=== PATIENT | male | born 1995 | race Two or more races ===

== ENCOUNTER 2025-04-20 14:33 | Inpatient (IN) | payer MEDICAID, OTHER ==
[~2025-04-20] VITALS: Ht 160 cm; Wt 90.9 kg
[2025-04-20] MEDS ORDERED: FLUP2.5T24 PO (14:47)
[2025-04-20] MEDS ORDERED: FLUPH2.5I IM (14:47)
[2025-04-20 15:00] LABS: COVID AG,FIA SOURCE NASAL SWAB
[2025-04-20 15:27] LABS: SARS-COV2 (COVID) ANTIGEN,FIA Negative (Negative)
[2025-04-20] MEDS ORDERED: FAMO20 PO (15:36)
[2025-04-20] MEDS ORDERED: FLUP25VI5 IM (15:36)
[2025-04-20 19:39] LABS: APPEARANCE,URINE CLEAR (CLEAR); GLUCOSE, URINE (UA) NEGATIVE (NEGATIVE); LEUKOCYTE ESTERASE ,URINE NEGATIVE (NEGATIVE); NITRATE,URINE NEGATIVE (NEGATIVE); OCCULT BLOOD,URINE NEGATIVE (NEGATIVE); PH,URINE DRUG SCREEN 6.0 (5.0-8.0); SPECIFIC GRAVITIY, URINE 1.007 (1.003-1.030)
[2025-04-20 19:44] LABS: ALCOHOL, URINE DRUG SCREEN NEGATIVE (NEGATIVE); AMPHET/METH SCREEN,URINE NEGATIVE (NEGATIVE); BARBITURATE SCREEN, URINE NEGATIVE (NEGATIVE); CANNABINOID SCREEN,URINE POSITIVE (NEGATIVE); COCAINE SCREEN,URINE NEGATIVE (NEGATIVE); METHADONE SCREEN, URINE NEGATIVE (NEGATIVE)
[2025-04-20] MEDS ORDERED: ZOLPIDEM TARTRATE 10 MG TABLET PO PRN (20:00)
[2025-04-20] MEDS: ACETAMINOPHEN 325 MG TABLET PO ONE (22:04)
[2025-04-21] MEDS ORDERED: PETROLATUM,WHITE 28 GM JELLY TP PRN (16:30)
[2025-04-21] MEDS ORDERED: LOPERAMIDE HCL 2 MG CAPSULE PO PRN (16:30)
[2025-04-21] MEDS ORDERED: ONDANSETRON 4 MG TABLET PO PRN (16:30)
[2025-04-21] MEDS ORDERED: OMEPRAZOLE 20 MG CAPSULE PO PRN (16:30)
[2025-04-21] MEDS ORDERED: MAGNESIUM HYDROXIDE SUSPENSION 30 ML UDCUP PO PRN (16:30)
[2025-04-21] MEDS ORDERED: BACITRACIN 28 GM OINTMENT TP PRN (16:30)
[2025-04-21] MEDS ORDERED: ALBUTEROL SULFATE HFA 90 MCG/PUFF 8 GM INHALER IH PRN (16:30)
[2025-04-21] MEDS ORDERED: MAG HYDROX/ALUMINUM HYD/SIMETH ES 30 ML SUSPENSION UDCUP PO PRN (16:30)
[2025-04-21] MEDS ORDERED: DOCUSATE SODIUM 100 MG CAPSULE PO PRN (16:30)
[2025-04-21 16:42] VITALS: BP 129/95; PULSE 82; RESP 18; TEMP 98.2; O2SAT 100
[2025-04-21 17:14] VITALS: RESP 18
[2025-04-21] MEDS: IBUPROFEN 600 MG TABLET PO PRN (17:14)
[2025-04-21 18:14] VITALS: RESP 17
[2025-04-21 20:29] VITALS: BP 109/70; PULSE 89; RESP 18; TEMP 98.1; O2SAT 100
[2025-04-22 00:13] VITALS: BP 112/85; PULSE 98; RESP 18; TEMP 99.5; O2SAT 98
[2025-04-22] MEDS: ACETAMINOPHEN 325 MG TABLET PO PRN (00:18)
[2025-04-22 01:18] VITALS: RESP 18
[2025-04-22 13:29] VITALS: BP 128/86; PULSE 90; RESP 18; TEMP 98.6; O2SAT 99
[2025-04-22 14:22] VITALS: BP 128/86; PULSE 90; RESP 18; TEMP 98.6; O2SAT 99
[2025-04-22] MEDS: FAMOTIDINE 20 MG TABLET PO SCH (17:53)
[2025-04-23 04:01] VITALS: RESP 16
[2025-04-23 04:51] VITALS: BP 131/95; PULSE 91; RESP 18; TEMP 99.1; O2SAT 98
[2025-04-23] MEDS: BENZOCAINE/MENTHOL [CEPACOL] LOZENGE PO PRN (04:58)
[2025-04-23 09:26] VITALS: BP 156/82; PULSE 60; RESP 18; TEMP 98.1; O2SAT 97
[2025-04-23 10:01] LABS: PLATELET COUNT (AUTO) 307 K/uL (150-450); RED BLOOD CELL COUNT(AUTO) 5.75 MIL/uL (4.50-5.90); RED CELL DISTRIBUTION WIDTH 14.3 % (11.5-14.5); WHITE BLOOD COUNT (AUTO) 9.0 K/uL (4.5-11.0)
[2025-04-23 10:38] VITALS: RESP 16
[2025-04-23 12:13] LABS: ASPARTATE AMINOTRANSFERASE 29 U/L (15-37); CALCIUM, TOTAL 9.3 mg/dL (8.8-10.5); CHOL/HDL RATIO 3.6 (4.2-7.3); CREATININE 0.66 mg/dL (0.60-1.30); GLOMERULAR FILTR. RATE CALC > 60 mL/min (>60); GLUCOSE,RANDOM 87 mg/dL (70-110); LDL CHOL (CALC.) 70 mg/dL (0-130); SODIUM SERUM 138 mmol/L (136-145); TOTAL PROTEIN, SERUM 8.1 g/dL (6.4-8.2); UREA NITROGEN, BLOOD 9 mg/dL (7-18)
== END 2025-04-23 15:59 | disposition home or self-care (01) | DRG 751 ==
LOC: EMS 14:33 → B2S 04-21 14:39
PROVIDERS: ADMIT Psychiatry & Neurology Psychiatry; ATTEND Psychiatry & Neurology Psychiatry
DX: F32.9 Major depressive disorder, single episode, unspecified (principal); R45.851 Suicidal ideations; E66.9 Obesity, unspecified; F12.10 Cannabis abuse, uncomplicated; Z20.822 Contact with and (suspected) exposure to COVID-19; F41.9 Anxiety disorder, unspecified; G47.00 Insomnia, unspecified; K21.9 Gastro-esophageal reflux disease without esophagitis; K59.00 Constipation, unspecified; Z68.35 Body mass index [BMI] 35.0-35.9, adult; Z91.52 Personal history of nonsuicidal self-harm
CPT/HCPCS: 80053; 80061; 80307; 81003; 83036; 84436; 84439; 85025; 99285; J2680

== ENCOUNTER 2025-05-09 18:32 | Inpatient (IN) | payer MEDICAID ==
[~2025-05-09] VITALS: Ht 165.1 cm; Wt 90.5 kg
[~2025-05-09 18:32] MED LIST: FAMO20 PO; FLUP25VI5 IM
[2025-05-09] MEDS ORDERED: BENZOCAINE/MENTHOL [CEPACOL] LOZENGE PO PRN (22:30)
[2025-05-09] MEDS ORDERED: MAGNESIUM HYDROXIDE SUSPENSION 30 ML UDCUP PO PRN (22:30)
[2025-05-09] MEDS ORDERED: OMEPRAZOLE 20 MG CAPSULE PO PRN (22:30)
[2025-05-09] MEDS ORDERED: PETROLATUM,WHITE 28 GM JELLY TP PRN (22:30)
[2025-05-09] MEDS ORDERED: IBUPROFEN 600 MG TABLET PO PRN (22:30)
[2025-05-09] MEDS ORDERED: DOCUSATE SODIUM 100 MG CAPSULE PO PRN (22:30)
[2025-05-09] MEDS ORDERED: LOPERAMIDE HCL 2 MG CAPSULE PO PRN (22:30)
[2025-05-09] MEDS ORDERED: ALBUTEROL SULFATE HFA 90 MCG/PUFF 8 GM INHALER IH PRN (22:30)
[2025-05-09] MEDS ORDERED: BACITRACIN 28 GM OINTMENT TP PRN (22:30)
[2025-05-09] MEDS ORDERED: ONDANSETRON 4 MG TABLET PO PRN (22:30)
[2025-05-09] MEDS ORDERED: MAG HYDROX/ALUMINUM HYD/SIMETH ES 30 ML SUSPENSION UDCUP PO PRN (22:30)
[2025-05-09 22:37] VITALS: RESP 18
[2025-05-09] MEDS: ACETAMINOPHEN 325 MG TABLET PO PRN (22:37)
[2025-05-09] MEDS ORDERED: INFLUENZA VIRUS VACCINE TVS (6MO+) 2025-26/PF 45 MCG/0.5 ML SYRINGE IM. ONE (22:45)
[2025-05-09] MEDS: ZOLPIDEM TARTRATE 10 MG TABLET PO PRN (23:23)
[2025-05-09 23:32] VITALS: RESP 18
[2025-05-09 23:55] LABS: GLUCOMETER DEV NAME(LOC) POC.BV; POC SARS-COV2 AG, FIA NEGATIVE (NEGATIVE)
[2025-05-10 08:07] VITALS: BP 111/84; PULSE 89; RESP 18; TEMP 97.8; O2SAT 99
[2025-05-10 10:06] VITALS: RESP 18; O2SAT 99
[2025-05-10 11:06] VITALS: RESP 17; O2SAT 99
[2025-05-10] MEDS: FAMOTIDINE 20 MG TABLET PO SCH (17:13)
[2025-05-10 20:00] VITALS: RESP 18
[2025-05-11 09:00] VITALS: RESP 18
[2025-05-12 08:12] VITALS: RESP 18
[2025-05-12 09:04] LABS: APPEARANCE,URINE HAZY (CLEAR); GLUCOSE, URINE (UA) NEGATIVE (NEGATIVE); LEUKOCYTE ESTERASE ,URINE NEGATIVE (NEGATIVE); NITRATE,URINE NEGATIVE (NEGATIVE); OCCULT BLOOD,URINE NEGATIVE (NEGATIVE); PH,URINE DRUG SCREEN 6.5 (5.0-8.0); SPECIFIC GRAVITIY, URINE 1.026 (1.003-1.030)
[2025-05-12 09:14] LABS: ALCOHOL, URINE DRUG SCREEN NEGATIVE (NEGATIVE); AMPHET/METH SCREEN,URINE NEGATIVE (NEGATIVE); BARBITURATE SCREEN, URINE NEGATIVE (NEGATIVE); CANNABINOID SCREEN,URINE POSITIVE (NEGATIVE); COCAINE SCREEN,URINE NEGATIVE (NEGATIVE); METHADONE SCREEN, URINE NEGATIVE (NEGATIVE)
[2025-05-13 08:35] VITALS: RESP 17
[2025-05-13 08:47] VITALS: RESP 18
[2025-05-13 13:37] VITALS: RESP 18
[2025-05-13 14:37] VITALS: RESP 17
== END 2025-05-13 14:20 | disposition home or self-care (01) | DRG 753 ==
LOC: B2S 21:17
PROVIDERS: ADMIT Psychiatry & Neurology Psychiatry; ATTEND Psychiatry & Neurology Psychiatry
DX: F31.9 Bipolar disorder, unspecified (principal); Z91.148 Patient's other noncompliance with medication regimen for other reason; R45.851 Suicidal ideations; G47.00 Insomnia, unspecified; Z20.822 Contact with and (suspected) exposure to COVID-19; F41.9 Anxiety disorder, unspecified; K21.9 Gastro-esophageal reflux disease without esophagitis; K59.00 Constipation, unspecified
CPT/HCPCS: 80307; 81003; 87081; J2680

== ENCOUNTER 2025-07-05 12:57 | Emergency (ER) | payer MEDICAID, OTHER ==
[~2025-07-05] VITALS: Ht 165.1 cm; Wt 91.0 kg
[~2025-07-05 12:57] MED LIST changes: -FAMO20 PO
[2025-07-05 13:09] VITALS: TEMP 98.3
[2025-07-05 13:19] LABS: COVID AG,FIA SOURCE NASAL SWAB
[2025-07-05 13:38] LABS: SARS-COV2 (COVID) ANTIGEN,FIA Negative (Negative)
[2025-07-05] MEDS: KETOROLAC TROMETHAMINE 30 MG/ML VIAL IM ONE (14:12)
[2025-07-05] MEDS: LIDOCAINE 5% TRANSDERMAL PATCH TD ONE (14:13)
[2025-07-05 15:00] VITALS: BP 104/63; PULSE 81; RESP 14; O2SAT 100
== END 2025-07-05 15:20 | disposition home or self-care (01) ==
LOC: EMS 13:11
DX: M54.50 Low back pain, unspecified (principal); F12.90 Cannabis use, unspecified, uncomplicated; Z20.822 Contact with and (suspected) exposure to COVID-19
CPT/HCPCS: 99283; 87426; 96372; J1885

== ENCOUNTER 2025-07-07 16:10 | Emergency (ER) | payer OTHER ==
[~2025-07-07] VITALS: Ht 165.1 cm; Wt 90.9 kg
[2025-07-07 16:43] VITALS: BP 116/84; PULSE 86; RESP 18; TEMP 97.9; O2SAT 99
== END 2025-07-07 18:48 | disposition left against medical advice (07) ==
LOC: EMS 16:10
DX: R45.851 Suicidal ideations (principal); Z53.21 Procedure and treatment not carried out due to patient leaving prior to being seen by health care provider
CPT/HCPCS: 99281; Z7502